=== PATIENT | female | born 1940 | race Caucasian/White ===

== ENCOUNTER 2024-12-07 13:51 | Outpatient (CLI) | payer MEDICARE | END 2024-12-07 13:52 | disposition home or self-care (01) | LOC: SCSBT 13:51 | PROVIDERS: ATTEND Internal Medicine | DX: M81.0 Age-related osteoporosis without current pathological fracture (principal); M85.852 Other specified disorders of bone density and structure, left thigh | CPT/HCPCS: 77080 ==